=== PATIENT | female | born 1965 ===

== ENCOUNTER 2019-12-10 14:03 | Outpatient (CLI) | payer SELFPAY ==
[2019-12-10] MEDS: Albuterol HFA 18 GM 200 PUFF INH IH (16:16)
[2019-12-10] MEDS: Inhaler, Assist Device 1 EACH MC (16:16)
== END 2019-12-10 14:23 ==
PROVIDERS: Visit Provider Nurse Practitioner Family
DX: J98.4 Other disorders of lung (principal); R05 Cough; R06.2 Wheezing
CPT/HCPCS: 94060; 94726; 94729